=== PATIENT | female | born 1940 | race Caucasian/White ===

== ENCOUNTER 2020-12-04 16:00 | Emergency (ER) | payer BC, OTHER ==
[~2020-12-04] VITALS: Ht 162.6 cm; Wt 75.0 kg
[2020-12-04] MEDS ORDERED: MORPHINE SULFATE 2 MG/ML DISP.SYRIN. IV ONE (16:30)
[2020-12-04] MEDS ORDERED: IV NORMAL SALINE 500ML 500 ML IV ONE (16:30)
[2020-12-04] MEDS ORDERED: ONDANSETRON PF 4 MG/2 ML VIAL. ONE (16:34)
[2020-12-04 16:44] LABS: CALCIUM 8.5 mg/dL (8.5-10.1); GFR 53.5; POTASSIUM 5.3 mmol/L (3.5-5.1)
[2020-12-04 17:09] LABS: BASO % 0 % (0-3); EOS % 0 % (0-3); HEMATOCRIT 41.3 % (36.0-47.0); HEMOGLOBIN 12.8 g/dL (12.0-15.5); LYMPH # 0.7 x10^3/uL (1.0-4.8); LYMPH % 5 % (24-48); MEAN CORPUSCULAR HEMOGLOBIN 30 pg (25-35); MEAN CORPUSCULAR HGB CONC 31 g/dL (31-37); MEAN CORPUSCULAR VOLUME 97 fL (79-100); MONO # 0.8 x10^3/uL (0.0-1.1); MONO % 6 % (0-9); NEUT # 12.5 x10^3uL (1.8-7.7); NEUT % 89 % (31-73); PLATELET COUNT 77 x10^3/uL (140-400); RED BLOOD COUNT 4.28 x10^6/uL (3.50-5.40); RED CELL DISTRIBUTION WIDTH 16.1 % (11.5-14.5)
[2020-12-04 17:34] LABS: ALBUMIN 3.4 g/dL (3.4-5.0); ALBUMIN/GLOBULIN RATIO 1.1 (1.0-1.7); MAGNESIUM 2.6 mg/dL (1.8-2.4); PHOSPHORUS 3.5 mg/dL (2.6-4.7); TOTAL BILIRUBIN 3.2 mg/dL (0.2-1.0); TOTAL PROTEIN 6.5 g/dL (6.4-8.2)
[2020-12-04 17:39] LABS: BILIRUBIN,URINE NEG (NEG); CLARITY,URINE HAZY; COLOR,URINE AMBER; GLUCOSE,URINE >=1000 mg/dL (NEG); NITRITE,URINE NEG (NEG); UROBILINOGEN,URINE 0.2 mg/dL (0.2 mg/dL)
[2020-12-04 17:40] LABS: BACTERIA,URINE 0 /HPF (0-FEW); RBC,URINE 0 /HPF (0-2); SQUAMOUS EPITHELIAL CELL,UR OCC /LPF; WBC,URINE 0 /HPF (0-4)
--- NOTE | 2020-12-04 17:55 | RAD ---
CT Head W/O Contrast: History: Reason: trauma / Spl. Instructions: / History: Comparison: none Axial images were obtained without contrast. There is marked diffuse atrophy. There is no mass effect, extraaxial fluid collections or gross blee d. Ventriculomegaly is felt to be secondary to atrophy. Marked diffuse periventricular and subcortica l white matter hypoattenuation is seen. There is no focal loss of meredith-white matter distinction to s uggest acute ischemia, i.e. stroke. Impression: 1. Marked diffuse atrophy and chronic white matter changes. 2. Ventriculomegaly is felt to be secondary to atrophy. 2. No acute findings. End impression CT maxillofacial without contrast History: sinus infection Axial helical images of the face were obtained without contrast. Axial and coronal reconstruction was performed. The nasal septum is deviated. The ostiomeatal complexes are narrow but patent. The paranasal sinuses are clear. The visualized osseous structures appear intact. The orbits appear normal. Impression: No acute findings. End impression CT C-Spine without contrast: Clinical History: Reason: trauma / Spl. Instructions: / History: Technique: Axial helical images of the cervical spine were obtained without contrast, axial coronal and sagittal reconstruction was performed. Findings: There is no loss of vertebral body stature. There is no prevertebral soft tissue swelling. The vert ebral bodies are well aligned. The C1-C2 relationship is normal. The visualized osseous structures a ppear normal. Evaluation of the central canal is limited without contrast. There is multiple posterio r disc bulges resulting in flattening of the thecal sac. There does not appear to be gross flattening of the cervical cord. There is marked narrowing of multiple neuroforamen. Impression: No acute findings. Clinical correlation suggested. PQRS Compliance Statement: One or more of the following individualized dose reduction techniques were utilized for this examinat ion: 1. Automated exposure control 2. Adjustment of the mA and/or kV according to patient size 3. Use of iterative reconstruction technique Electronically signed by: Goldy Ga III, MD (12/04/2020 5:53 PM) [facility]
--- NOTE | 2020-12-04 17:56 | RAD ---
Exam: CT of chest, abdomen and pelvis without contrast INDICATION: Trauma TECHNIQUE: Sequential axial images through the chest, abdomen and pelvis obtained without IV contrast . Sagittal and coronal reformatted images were reconstructed from the axial data and reviewed. Comparisons: None FINDINGS: Visualized portions of the thyroid are unremarkable. No enlarged mediastinal lymph nodes are identifi ed. Heart size is normal. No pericardial effusion. Coronary calcific patient. Thoracic aorta has a normal course and caliber. Pulmonary artery is not enlarged. Airways are patent. No consolidation or pneumothorax. There is patchy areas of groundglass opacity no devin in the upper lobes bilaterally. No suspicious lung nodule. No pleural effusion or thickening. Liver, spleen, pancreas, gallbladder and adrenals are unremarkable. No perinephric inflammation or hydronephrosis. No renal or ureteral calculi are identified. There is a hyperdense cystic lesion at the left kidney favored represent hemorrhagic cyst. Bladder is decompressed. Fitzgerald balloon noted within the bladder. Uterus is absent. No abnormal adnexa l mass. Large and small bowel are unremarkable. Appendix is nonidentified. No free intra-abdominal air or flu id. Abdominal aorta has a normal course and caliber. No enlarged intra-abdominal lymph nodes are identified. No suspicious osseous lesions or acute fractures. IMPRESSION: 1. Evaluation is mildly limited for fracture particularly in the lower ribs secondary to extensive r espiratory motion. 2. Otherwise, no sequela of acute traumatic injury identified within the chest, abdomen or pelvis. 3. Scattered areas of groundglass opacity in the lungs bilaterally favored to be infectious or infla mmatory in etiology. Exposure: One or more of the following in the visualized dose reduction techniques were utilized for this examination: 1. Automated exposure control 2. Adjustment of the MA and/or KV according to patient size 3. Use of iterative of reconstructive technique Electronically signed by: Leticia Walker MD (12/04/2020 5:54 PM) [facility]
--- NOTE | 2020-12-04 18:01 | PHYS DOC ---
Past History Past Medical History: Other Additional Past Medical Histor: UNKNOWN HISTORY (DRE DANIELLE MD) Past Medical History: Dementia (OMEGA MARK MD) Past Surgical History: Other Additional Past Surgical Histo: UNKNOWN (DRE DANIELLE MD) Alcohol Use: None (DRE DANIELLE MD) General Adult EDM: Chief Complaint: ALTERED MENTAL STATUS HPI: HPI: Patient is a 71-year-old female coming in for "failure to thrive". EMS was called by son because he stated he had no longer take care of her. Son states that she has been having frequent falls and falling out of her wheelchair. He has had been having a difficult time trying to get her back up. Has decreased p.o. intake. Otherwise history limited by patient's mental status (DRE DANIELLE MD) Review of Systems: Review of Systems: All other systems within normal limits except for as noted in the HPI (DRE DANIELLE MD) Current Medications: Current Meds: Current Medications Medications (Trade) Dose Ordered Sig/Becca Start Time Stop Time Status Last Admin Dose Admin Morphine Sulfate (Morphine 2mg Syringe) 2 mg 1X ONCE 12/04/20 16:30 12/04/20 17:10 DC 12/04/20 16:34 2 MG Ondansetron HCl (Zofran) 4 mg STK-MED ONCE 12/04/20 16:34 12/04/20 16:35 DC Sodium Chloride 500 ml @ 0 mls/hr 1X ONCE 12/04/20 16:30 12/04/20 17:10 DC 12/04/20 16:31 500 MLS/HR (DRE DANIELLE MD) Allergies: Allergies: Allergies Coded Allergies Type Severity Reaction Last Updated Verified No Known Drug Allergies 12/04/20 No (DRE DANIELLE MD) Physical Exam: PE: Constitutional: Well developed, well nourished, ill-appearing [] HENT: Right orbital swelling bilateral external ears normal, nose normal. [] Eyes: PERRLA, conjunctiva normal, no discharge. [] Neck: No rigidity, supple, no stridor. No C-spine tender [] Cardiovascular: Regular rate and rhythm, brisk cap refill [] Lungs & Thorax: Non labored symmetric respirations, no tachypnea or respiratory distress, left chest wall tenderness [] Abdomen: Soft, nondistended, generalized tenderness. Skin: Warm, bruising to entire left arm, left chest, surrounding right orbit. [] Back: Unremarkable, no step-offs or deformities Extremities: No deformities, range of motion grossly intact, bilateral 2+ pitting lower extremity edema [] Neurologic: Alert and oriented X 2, no focal deficits noted. [] Psychologic: Tearful [] (DRE DANIELLE MD) Current Patient Data: Labs: Laboratory Tests Test 12/04/20 16:12 12/04/20 16:51 White Blood Count 14.0 x10^3/uL (4.0-11.0) H Red Blood Count 4.28 x10^6/uL (3.50-5.40) Hemoglobin 12.8 g/dL (12.0-15.5) Hematocrit 41.3 % (36.0-47.0) Mean Corpuscular Volume 97 fL (79-100) Mean Corpuscular Hemoglobin 30 pg (25-35) Mean Corpuscular Hemoglobin Concent 31 g/dL (31-37) Red Cell Distribution Width 16.1 % (11.5-14.5) H Platelet Count 77 x10^3/uL (140-400) L Neutrophils (%) (Auto) 89 % (31-73) H Lymphocytes (%) (Auto) 5 % (24-48) L Monocytes (%) (Auto) 6 % (0-9) Eosinophils (%) (Auto) 0 % (0-3) Basophils (%) (Auto) 0 % (0-3) Neutrophils # (Auto) 12.5 x10^3uL (1.8-7.7) H Lymphocytes # (Auto) 0.7 x10^3/uL (1.0-4.8) L Monocytes # (Auto) 0.8 x10^3/uL (0.0-1.1) Eosinophils # (Auto) 0.0 x10^3/uL (0.0-0.7) Basophils # (Auto) 0.0 x10^3/uL (0.0-0.2) Sodium Level 137 mmol/L (136-145) Potassium Level 5.3 mmol/L (3.5-5.1) H Chloride Level 101 mmol/L (98-107) Carbon Dioxide Level 26 mmol/L (21-32) Anion Gap 10 (6-14) Blood Urea Nitrogen 59 mg/dL (7-20) H Creatinine 1.0 mg/dL (0.6-1.0) Estimated GFR (Cockcroft-Gault) 53.5 BUN/Creatinine Ratio 59 (6-20) H Glucose Level 357 mg/dL (70-99) H Lactic Acid Level 5.0 mmol/L (0.4-2.0) *H Calcium Level 8.5 mg/dL (8.5-10.1) Phosphorus Level 3.5 mg/dL (2.6-4.7) Magnesium Level 2.6 mg/dL (1.8-2.4) H Total Bilirubin 3.2 mg/dL (0.2-1.0) H Aspartate Amino Transferase (AST) 803 U/L (15-37) H Alanine Aminotransferase (ALT) 1233 U/L (14-59) H Alkaline Phosphatase 278 U/L (46-116) H Troponin I Quantitative 0.021 ng/mL (0-0.055) PJ-Jlz-C-Type Natriuretic Peptide 5809 pg/mL (0-449) H Total Protein 6.5 g/dL (6.4-8.2) Albumin 3.4 g/dL (3.4-5.0) Albumin/Globulin Ratio 1.1 (1.0-1.7) Urine Collection Type Unknown Urine Color [place] Urine Clarity Hazy Urine pH 5.0 Urine Specific [place] 1.020 Urine Protein 30 mg/dl (NEG-TRACE) Urine Glucose (UA) >=1000 mg/dL (NEG) Urine Ketones (Stick) Trace mg/dL (NEG) Urine Blood Trace (NEG) Urine Nitrite Neg (NEG) Urine Bilirubin Neg (NEG) Urine Urobilinogen Dipstick 0.2 mg/dL (0.2 mg/dL) Urine Leukocyte Esterase Neg (NEG) Urine RBC 0 /HPF (0-2) Urine WBC 0 /HPF (0-4) Urine Squamous Epithelial Cells Occ /LPF Urine Bacteria 0 /HPF (0-FEW) Vital Signs: Vital Signs Date Time Temp Pulse Resp B/P (MAP) Pulse Ox O2 Delivery O2 Flow Rate FiO2 12/04/20 16:34 24 100 10.0 12/04/20 16:06 128 162/85 (110) NonRebreather Mask (DRE DANIELLE MD) EKG: EKG: Sinus tachycardia, heart rate 113 bpm, normal axis, no ST elevation or depression, some baseline artifact from interpretation. No ectopy. Normal intervals [] (DRE DANIELLE MD) Radiology/Procedures: Radiology/Procedures: [] (DRE DANIELLE MD) Radiology/Procedures: [address] [id number] IMAGING REPORT Signed PATIENT: RUBI HDEZ ACCOUNT: [id number] : 1940 LOCATION: ER AGE: 80 SEX: F EXAM STATUS: REG ER ORD. PHYSICIAN: DRE DANIELLE MD REASON: trauma PROCEDURE: CT CHEST ABDOMEN PELVIS WO Exam: CT of chest, abdomen and pelvis without contrast INDICATION: Trauma TECHNIQUE: Sequential axial images through the chest, abdomen and pelvis obtained without IV contrast. Sagittal and coronal reformatted images were reconstructed from the axial data and reviewed. Comparisons: None FINDINGS: Visualized portions of the thyroid are unremarkable. No enlarged mediastinal lymph nodes are identified. Heart size is normal. No pericardial effusion. Coronary calcific patient. Thoracic aorta has a normal course and caliber. Pulmonary artery is not enlarged. Airways are patent. No consolidation or pneumothorax. There is patchy areas of groundglass opacity noted in the upper lobes bilaterally. No suspicious lung nodule. No pleural effusion or thickening. Liver, spleen, pancreas, gallbladder and adrenals are unremarkable. No perinephric inflammation or hydronephrosis. No renal or ureteral calculi are identified. There is a hyperdense cystic lesion at the left kidney favored represent hemorrhagic cyst. Bladder is decompressed. Fitzgerald balloon noted within the bladder. Uterus is absent. No abnormal adnexal mass. Large and small bowel are unremarkable. Appendix is nonidentified. No free intra-abdominal air or fluid. Abdominal aorta has a normal course and caliber. No enlarged intra-abdominal lymph nodes are identified. No suspicious osseous lesions or acute fractures. IMPRESSION: 1. Evaluation is mildly limited for fracture particularly in the lower ribs secondary to extensive respiratory motion. 2. Otherwise, no sequela of acute traumatic injury identified within the chest, abdomen or pelvis. 3. Scattered areas of groundglass opacity in the lungs bilaterally favored to be infectious or inflammatory in etiology. Exposure: One or more of the following in the visualized dose reduction techniques were utilized for this examination: 1. Automated exposure control 2. Adjustment of the MA and/or KV according to patient size 3. Use of iterative of reconstructive technique Electronically signed by: Leticia Oliva MD (12/04/2020 5:54 PM) [facility] DICTATED AND SIGNED BY: LETICIA OLIVA MD DATE: 12/04/20 6391 CC: DRE DANIELLE MD; PCP,NO ~[facility] [address] [place] [address] IMAGING REPORT Signed PATIENT: RUBI HDEZ ACCOUNT: [id number] : 1940 LOCATION: ER AGE: 80 SEX: F EXAM STATUS: REG ER ORD. PHYSICIAN: DRE DANIELLE MD REASON: trauma PROCEDURE: CT HEAD AND MAXILLOFACIAL WO CT Head W/O Contrast: History: Reason: trauma / Spl. Instructions: / History: Comparison: none Axial images were obtained without contrast. There is marked diffuse atrophy. There is no mass effect, extraaxial fluid collections or gross bleed. Ventriculomegaly is felt to be secondary to atrophy. Marked diffuse periventricular and subcortical white matter hypoattenuation is seen. There is no focal loss of meredith-white matter distinction to suggest acute ischemia, i.e. stroke. Impression: 1. Marked diffuse atrophy and chronic white matter changes. 2. Ventriculomegaly is felt to be secondary to atrophy. 2. No acute findings. End impression CT maxillofacial without contrast History: sinus infection Axial helical images of the face were obtained without contrast. Axial and coronal reconstruction was performed. The nasal septum is deviated. The ostiomeatal complexes are narrow but patent. The paranasal sinuses are clear. The visualized osseous structures appear intact. The orbits appear normal. Impression: No acute findings. End impression CT C-Spine without contrast: Clinical History: Reason: trauma / Spl. Instructions: / History: Technique: Axial helical images of the cervical spine were obtained without contrast, axial coronal and sagittal reconstruction was performed. Findings: There is no loss of vertebral body stature. There is no prevertebral soft tissue swelling. The vertebral bodies are well aligned. The C1-C2 relationship is normal. The visualized osseous structures appear normal. Evaluation of the central canal is limited without contrast. There is multiple posterior disc bulges resulting in flattening of the thecal sac. There does not appear to be gross flattening of the cervical cord. There is marked narrowing of multiple neuroforamen. Impression: No acute findings. Clinical correlation suggested. PQRS Compliance Statement: One or more of the following individualized dose reduction techniques were utilized for this examination: 1. Automated exposure control 2. Adjustment of the mA and/or kV according to patient size 3. Use of iterative reconstruction technique Electronically signed by: Mony Raymundo III, MD (12/04/2020 5:53 PM) [facility] DICTATED AND SIGNED BY: MONY RAYMUNDO III, MD DATE: 12/04/201740 CC: DRE DANIELLE MD; PCP,NO ~[facility] [address] [address] IMAGING REPORT Signed PATIENT: RUBI HDEZ ACCOUNT: [id number] : 1940 LOCATION: ER AGE: 80 SEX: F EXAM STATUS: REG ER ORD. PHYSICIAN: DRE DANIELLE MD REASON: elevated LFTs PROCEDURE: ABDOMEN LTD Abdominal ultrasound Limited: Reason for examination: Elevated liver function tests. Ultrasound examination of the right upper quadrant was performed. Examination is compromised by patient's inability to move, altered mental status and liver located in the chest due to an elevated hemidiaphragm. Pancreas is obscured by bowel gas. Liver shows fatty infiltration. Focal hepatic lesion is not identified. Gallbladder appears to contain some sludge and the wall is thickened at 6.1 mm. Common bile but is normal caliber at 5.7 mm. Right kidney could not be visualized. IMPRESSION: Fatty liver. Sludge in the gallbladder with gallbladder wall thickening at 6.1 mm. Electronically signed by: Caesar Lucas MD (12/04/2020 7:45 PM) [facility] DICTATED AND SIGNED BY: CAESAR LUCAS MD DATE: 12/04/201939 CC: DRE DANIELLE MD; PCP,NO ~[facility] [address] [place] [id number] IMAGING REPORT Signed PATIENT: RUBI HDEZ ACCOUNT: [id number] : 1940 LOCATION: ER AGE: 80 SEX: F EXAM STATUS: REG ER ORD. PHYSICIAN: DRE DANIELLE MD REASON: trauma PROCEDURE: HUMERUS BILAT Bilateral 2 view humerus and ulna radius HISTORY: Pain status post trauma AP lateral views were obtained of the humerus and the forearms bilaterally Two-view bilateral humerus: AP lateral views There is marked degenerative changes of the AC joints left worse than right. The remaining visualized osseous structures appear normal. IMPRESSION: No acute findings. 2 view bilateral forearm: The visualized osseous structures appear grossly intact. IMPRESSION: No acute findings. Electronically signed by: Mony Raymundo III, MD (12/04/2020 5:57 PM) [facility] DICTATED AND SIGNED BY: MONY RAYMUNDO III, MD DATE: 12/04/20 082 CC: DRE DANIELLE MD; PCP,NO ~[facility]0 0 (OMEGA MARK MD) Heart Score: Risk Factors: Risk Factors: DM, Current or recent (<one month) smoker, HTN, HLP, family history of CAD, obesity. Risk Scores: Score 0 - 3: 2.5% MACE over next 6 weeks - Discharge Home Score 4 - 6: 20.3% MACE over next 6 weeks - Admit for Clinical Observation Score 7 - 10: 72.7% MACE over next 6 weeks - Early Invasive Strategies (DRE DANIELLE MD) HEART Score for Chest Pain: HEART Score for Chest Pain Response (Comments) Value History Moderately Suspicious 1 ECG Nonspecific Repolarizatio 1 Age > 65 2 Risk Factors 1 or 2 Risk Factors 1 Total 5 Course & Med Decision Making: Course & Med Decision Making Pertinent Labs and Imaging studies reviewed. (See chart for details) Pending CT reads at shift change. Ultrasound ordered due to elevated LFTs since that will determine whether she can stay at this facility or needs to be transferred. Care transition to Dr. Mark. [] (DRE DANIELLE MD) Course & Med Decision Making Verbal consent by Son for transfer to [facility]-possible surgery consult. See Dr. Danielle notes for details. Pt. transfered to [facility] hospital for surgical consult. Dr. Marie accepting. Impression: 1. Biliary colic- Gall Bladder Sludge 2. Altered mental status 3. Hyperkalemia 5.3 4. DM - gluc., 357 5. Hx Frequent Falls 6. Elevated Lactic acid 5.0- recheck 3.3 7. Elevated AST 803/ALT 1233, Alk. Phos 278 8. BNP 5809 9. Leukocytosis 14. 10. Multiple contusion (OMEGA MARK MD) Dragon Disclaimer: Dragon Disclaimer: This electronic medical record was generated, in whole or in part, using a voice recognition dictation system. (DRE DANIELLE MD) Departure Departure: Referrals: PCP,NO (PCP) Dragon Disclaimer This chart was dictated in whole or in part using Voice Recognition software in a busy, high-work load, and often noisy Emergency Department environment. It may contain unintended and wholly unrecognized errors or omissions. (OMEGA MARK MD) Dragon Disclaimer This chart was dictated in whole or in part using Voice Recognition software in a busy, high-work load, and often noisy Emergency Department environment. It may contain unintended and wholly unrecognized errors or omissions. (DRE DANIELLE MD) DRE DANIELLE MD Dec 04, 2020 18:00 OMEGA MARK MD Dec 04, 2020 20:36
[2020-12-04] MEDS ORDERED: PIPERACILLIN/TAZOBACTAM 3.375 GM in IV NORMAL SALINE 50ML 50 ML IV ONE (18:15)
--- NOTE | 2020-12-04 18:36 | EKG ---
[facility] ED [facility]0 [address] [place] [id number] Test Date: 2020-12-04 Test Time: 16:15:08 Pat Name: RUBI HDEZ Department: Room: Gender: F Business Assistant: ALISON : 1940 Requested By: DRE DANIELLE Order Number: [id number] Reading MD: Jim Ott Measurements Intervals [place] Rate: 113 P: 58 SC: 126 QRS: 62 QRSD: 80 T: -6 QT: 324 QTc: 450 Interpretive Statements SINUS TACHYCARDIA T ABNORMALITY IN ANTERIOR LEADS INFERIOR LEADS ABNORMAL ECG RI6.02 No previous ECG available for comparison Electronically Signed On 12-05-2020 9:23:55 [employer]CH[employer] by Jim Ott
[2020-12-04] MEDS ORDERED: PIPERACILLIN/TAZOBACTAM 3.375 GM VIAL IV ONE (18:50)
[2020-12-04] MEDS ORDERED: IV NORMAL SALINE 50ML 50 ML ONE (18:50)
--- NOTE | 2020-12-04 19:48 | RAD ---
Abdominal ultrasound Limited: Reason for examination: Elevated liver function tests. Ultrasound examination of the right upper quadrant was performed. Examination is compromised by patie nt's inability to move, altered mental status and liver located in the chest due to an elevated hemid iaphragm. Pancreas is obscured by bowel gas. Liver shows fatty infiltration. Focal hepatic lesion is not identi fied. Gallbladder appears to contain some sludge and the wall is thickened at 6.1 mm. Common bile but is normal caliber at 5.7 mm. Right kidney could not be visualized. IMPRESSION: Fatty liver. Sludge in the gallbladder with gallbladder wall thickening at 6.1 mm. Electronically signed by: Ailyn Champagne MD (12/04/2020 7:45 PM) [facility]
[2020-12-04] MEDS ORDERED: IV NORMAL SALINE 1,000ML 1,000 ML IV ONE (20:45)
[2020-12-04 23:51] VITALS: BP 110/78
== END 2020-12-05 00:51 | disposition short-term general hospital (02) ==
LOC: ER 16:00
DX: S40.022A Contusion of left upper arm, initial encounter (principal); S20.212A Contusion of left front wall of thorax, initial encounter; S05.11XA Contusion of eyeball and orbital tissues, right eye, initial encounter; K80.50 Calculus of bile duct without cholangitis or cholecystitis without obstruction; R41.82 Altered mental status, unspecified; E87.5 Hyperkalemia; R74.02 Elevation of levels of lactic acid dehydrogenase [LDH]; R79.89 Other specified abnormal findings of blood chemistry; D72.829 Elevated white blood cell count, unspecified; F03.90 Unspecified dementia, unspecified severity, without behavioral disturbance, psychotic disturbance, mood disturbance, and anxiety; W05.0XXA Fall from non-moving wheelchair, initial encounter; Y93.89 Activity, other specified; Y92.89 Other specified places as the place of occurrence of the external cause; Y99.8 Other external cause status
CPT/HCPCS: 36415; 51702; 70450; 70486; 71250; 72125; 73060; 73090; 74176; 76705; 80053; 81001; 83605; 83735; 83880; 84100; 84484; 85025; 87040; 93005; 96361; 96365; 96375; 99285; J2270; J2543; J7030; J7040